=== PATIENT | female | born 1935 | race Caucasian/White ===

== ENCOUNTER → 2016-06-29 | Outpatient (CLI) | payer OTHER | LOC: FIMAGING 09:02 | DX: Z12.31 Encounter for screening mammogram for malignant neoplasm of breast (principal) | CPT/HCPCS: G0202 ==

== ENCOUNTER → 2016-08-18 | Outpatient (CLI) | payer OTHER | LOC: BHFA 08:00 | PROVIDERS: ATTEND Internal Medicine Critical Care Medicine | DX: J44.9 Chronic obstructive pulmonary disease, unspecified (principal) | CPT/HCPCS: 94060; 94070; 94726; 94729; J7674 ==

== ENCOUNTER → 2018-01-08 | Outpatient (CLI) | payer OTHER | LOC: FIMAGING 08:53 | PROVIDERS: ATTEND Internal Medicine Endocrinology, Diabetes & Metabolism | DX: Z13.820 Encounter for screening for osteoporosis (principal); M81.0 Age-related osteoporosis without current pathological fracture ==

== ENCOUNTER → 2018-05-02 | Outpatient (CLI) | payer OTHER | LOC: FIMAGING 08:41 | PROVIDERS: ATTEND Internal Medicine Endocrinology, Diabetes & Metabolism | DX: E05.20 Thyrotoxicosis with toxic multinodular goiter without thyrotoxic crisis or storm (principal) | CPT/HCPCS: 78014; A9516 ==

== ENCOUNTER → 2018-05-16 | Outpatient (CLI) | payer OTHER | LOC: FIMAGING 09:50 | PROVIDERS: ATTEND Internal Medicine Endocrinology, Diabetes & Metabolism | DX: E05.00 Thyrotoxicosis with diffuse goiter without thyrotoxic crisis or storm (principal) | CPT/HCPCS: 79005; A9517 ==